=== PATIENT | male | born 1960 | race Caucasian/White ===

== ENCOUNTER 2017-08-26 16:46 | Emergency (ER) | payer OTHER ==
[~2017-08-26] VITALS: Ht 167.6 cm; Wt 81.6 kg
[2017-08-26] MEDS ORDERED: ATORVASTATIN CA20 MG (16:57)
[2017-08-26] MEDS ORDERED: ASPIR 8181 MG (16:57)
[2017-08-26] MEDS ORDERED: TUSSI-PRES LIQ118 ML PO (19:47)
[2017-08-26] MEDS ORDERED: ZITHROMAX500 MG PO (19:47)
== END 2017-08-26 20:11 | disposition home or self-care (01) ==
LOC: ER 16:46
DX: R05 Cough (principal)